=== PATIENT | female | born 1960 | race Caucasian/White ===

== ENCOUNTER → 2016-07-28 | Outpatient (CLI) | payer OTHER | END | disposition home or self-care (01) | LOC: RAD.S 07-03 09:30 | DX: R10.11 Right upper quadrant pain (principal) ==

== ENCOUNTER 2016-08-18 05:27 | Day surgery (SDC) | payer OTHER ==
[~2016-08-18] VITALS: Ht 170.2 cm; Wt 62.3 kg
--- NOTE | 2016-08-27 20:44 | OR ---
ADMIT: 08/18/2016 RM/LOC: [facility] MR#: [id number] [address] [place] [address] Operative/Delivery Room Report SEX: F AGE: 56 : 1960 SURGERY DATE: 08/18/2016 SURGEON: Pascual Johnson MD PREOPERATIVE DIAGNOSIS: Epigastric and right upper quadrant abdominal pain and bloating. POSTOPERATIVE DIAGNOSIS: Erosive gastritis. PROCEDURE: Esophagogastroduodenoscopy with biopsy. ANESTHESIA: IV general. DESCRIPTION OF PROCEDURE: The patient was taken to the endoscopy suite and placed left side down on her hospital cart. IV sedation was established after placing a bite-block. The upper endoscope was advanced through the oropharynx into the esophagus without difficulty. The scope was pushed under visualization to the stomach. Air was used to insufflate the stomach. The pylorus was intubated. The first and second portions of the duodenum were examined and appeared normal. Duodenal bulb biopsies were obtained to evaluate for celiac disease. The scope was withdrawn to the stomach where there was erosive gastritis extending throughout the antrum to the body. Biopsies at this level were obtained. On retroflexion of the scope the more proximal, gastric body, fundus, and cardia appeared normal. The scope was withdrawn to the gastroesophageal junction. This was normal in appearance. Air was suctioned. The patient tolerated the procedure well and transferred to the recovery area in stable condition. Pascual Johnson MD/ karin JOB #: [id number] CC: Pascual Johnson, Attending Physician Arturo Hernandez, Family Physician Harriet Barrera APRN
== END 2016-08-18 08:32 | disposition home or self-care (01) ==
LOC: SSS 05:27
DX: K29.50 Unspecified chronic gastritis without bleeding (principal); K44.9 Diaphragmatic hernia without obstruction or gangrene; Z79.899 Other long term (current) drug therapy; Z88.8 Allergy status to other drugs, medicaments and biological substances; Z87.891 Personal history of nicotine dependence

== ENCOUNTER → 2016-09-01 | Outpatient (CLI) | payer OTHER | END | disposition home or self-care (01) | LOC: RAD.S 08:43 | DX: Z12.31 Encounter for screening mammogram for malignant neoplasm of breast (principal) ==

== ENCOUNTER 2016-10-02 05:27 | Day surgery (SDC) | payer OTHER ==
[~2016-10-02] VITALS: Ht 170.2 cm; Wt 61.0 kg
--- NOTE | 2016-10-04 09:14 | OR ---
ADMIT: 10/02/2016 RM/LOC: [facility] MR#: [id number] [address] [place] [address] Operative/Delivery Room Report SEX: F AGE: 56 : 1960 SURGERY DATE: 10/02/2016 SURGEON: Pascual Johnson MD PREOPERATIVE DIAGNOSIS: Chronic cholecystitis. POSTOPERATIVE DIAGNOSIS: Chronic cholecystitis. PROCEDURE: Laparoscopic cholecystectomy. ASSISTING: JEREMÍAS Rehman. His assistance was necessary for laparoscopic visualization and tissue retraction. ANESTHESIA: General endotracheal. ESTIMATED BLOOD LOSS: 10 mL. DESCRIPTION OF PROCEDURE: The patient was taken to the operating room and placed supine on the operating room table. General anesthesia was established. The abdomen was prepped and draped in the standard surgical fashion. A 5 mm infraumbilical incision was made in the skin. The fascia was grasped with a Elbert clamp and a Veress needle was advanced into the peritoneal cavity. Carbon dioxide was used to insufflate the abdomen to 15 mmHg pressure. The Veress needle was withdrawn and a 5 mm XCEL trocar was placed. Laparoscope was advanced and showed intraperitoneal position with no damage to underlying structures. Next, an 11 mm subxiphoid port and 2 right lateral 5 mm ports were placed under visualization. The gallbladder was retracted cephalad. Calot triangle was dissected. There were numerous adhesions to the gallbladder edge consistent with chronic cholecystitis and these were taken down with cautery to expose Calot triangle. The cystic duct was skeletonized and the view of safety was obtained. The cystic duct was doubly clipped distally, singly clipped proximally, and divided. The cystic ADMIT: 10/02/2016 RM/LOC: [facility] MR#: [id number] [address] [place] [address] Operative/Delivery Room Report SEX: F AGE: 56 : 1960 artery was skeletonized, doubly clipped proximally, singly clipped distally, and divided. The gallbladder was excised from the gallbladder fossa with Bovie cautery. It was placed in an EndoCatch bag and removed through the subxiphoid port site. The right upper quadrant was irrigated. There was no evidence of bleeding. No evidence of bile leak, and the clips remained intact on the cystic duct and artery. The ports were removed under visualization without evidence of bleeding. The fascial margin at the subxiphoid port site was approximated with 0 Vicryl suture and the suture passer. The abdomen was allowed to deflate. Skin edges were approximated with 4-0 Monocryl in a subcuticular fashion and Dermabond. Sponge, needle, and instrument counts were correct at the end of the case. The patient tolerated the procedure well and transferred to the recovery area in stable condition. Pascual Johnson MD/ karin JOB #: [id number] CC: Pascual Johnson, Attending Physician Arturo Hernandez, Family Physician
== END 2016-10-02 11:35 | disposition home or self-care (01) ==
LOC: SSS 05:27
PROC: 0FT44ZZ Resection of Gallbladder, Percutaneous Endoscopic Approach (ICD-10-PCS; principal; 2016-10-02)
DX: K81.1 Chronic cholecystitis (principal); F41.9 Anxiety disorder, unspecified; Z88.1 Allergy status to other antibiotic agents; Z87.891 Personal history of nicotine dependence; Z98.890 Other specified postprocedural states